=== PATIENT | female | born 1960 | race Caucasian/White ===

== ENCOUNTER → 2019-12-17 12:12 | Day surgery (SDC) | payer SELFPAY ==
[~2019-12-17 12:12] MED LIST: Acetaminophen TAB* 325 MG ONE; Acetaminophen TAB* 325 MG PO ONE; Buffered Lidocaine 1% SYRIN* 1 ML/SYRINGE INTRADERM ONE; HYDROmorphone INJ1* 1 MG/ML SYRINGE IV PRN; HYDROmorphone TAB* 2 MG PO ONE; Lactated Ringers 1000 ML Bag* 1,000 ML IV SCH; Naloxone* 0.4 MG/ML 1 ML VIAL IV PRN; PROCHLORPERAZINE INJ 5 MG/ML 2 ML VIAL IV PRN; ceFAZolin 2 GM PREMIX in ORs 2 GM/50 ML BAG ONE; diPHENhydraMINE IV* 50 MG/ML 1 ml VIAL (BENADRYL) IV PRN
[2019-12-17 13:32] VITALS: BP 167/93
== END | disposition home or self-care (01) ==
LOC: OR 12:12
PROVIDERS: ATTEND Orthopaedic Surgery Hand Surgery
DX: Z53.8 Procedure and treatment not carried out for other reasons (principal)
CPT/HCPCS: A9270-GY; J0690

== ENCOUNTER 2019-12-20 06:20 | Day surgery (SDC) | payer OTHER ==
[~2019-12-20 06:20] MED LIST changes: -Acetaminophen TAB* 325 MG ONE; -Acetaminophen TAB* 325 MG PO ONE; +Famotidine IV* 10 MG/ML 2 ML (20 mg) IV ONE; -HYDROmorphone INJ1* 1 MG/ML SYRINGE IV PRN; -HYDROmorphone TAB* 2 MG PO ONE; -Naloxone* 0.4 MG/ML 1 ML VIAL IV PRN; -PROCHLORPERAZINE INJ 5 MG/ML 2 ML VIAL IV PRN; -ceFAZolin 2 GM PREMIX in ORs 2 GM/50 ML BAG ONE; -diPHENhydraMINE IV* 50 MG/ML 1 ml VIAL (BENADRYL) IV PRN
[2019-12-20] MEDS ORDERED: Famotidine IV* 10 MG/ML 2 ML (20 mg) ONE (06:27)
[2019-12-20] MEDS ORDERED: ceFAZolin 2 GM PREMIX in ORs 2 GM/50 ML BAG ONE (06:27)
[2019-12-20] MEDS ORDERED: Bupivacaine 0.25% SDV* 30 ML ONE (07:23)
[2019-12-20] MEDS ORDERED: Midazolam* 1 MG/ML 5 ML VIAL (5 MG) ONE (07:32)
[2019-12-20] MEDS ORDERED: fentaNYL* 50 MCG/ML 2 ML VIAL (100 MCG VIAL) ONE ×2 (07:42→08:21)
[2019-12-20] MEDS ORDERED: Dexamethasone IV* 4 MG/ML 1 ML (4 MG) ONE (08:06)
[2019-12-20] MEDS ORDERED: Glycopyrrolate IV* 0.2 MG/ML 1 ML VIAL ONE (08:06)
[2019-12-20] MEDS ORDERED: Propofol* 10 MG/ML 20 ML BTL ONE (08:06)
[2019-12-20] MEDS ORDERED: Lidocaine 2% PF * 5 ML VIAL ONE (08:06)
[2019-12-20] MEDS ORDERED: DiMENhydriNATE IV* 50 MG/ML VIAL ONE (08:06)
[2019-12-20] MEDS ORDERED: Ondansetron INJ* 2 MG/ML VIAL ONE (08:06)
[2019-12-20] MEDS ORDERED: Naloxone* 0.4 MG/ML 1 ML VIAL IV PRN (08:41)
[2019-12-20] MEDS ORDERED: DiMENhydriNATE IV* 50 MG/ML VIAL IV PUSH PRN (08:41)
[2019-12-20] MEDS ORDERED: Acetaminophen TAB* 325 MG PO PRN (08:41)
[2019-12-20] MEDS ORDERED: HYDROmorphone INJ1* 1 MG/ML SYRINGE IV PRN (08:41)
[2019-12-20] MEDS ORDERED: Ketorolac INJ* 30 MG/ML 1 ML VIAL IV PUSH ONE (09:29)
[2019-12-20] MEDS ORDERED: Ketorolac INJ* 15 MG/ML 1 ML VIAL IV PUSH ONE (09:29)
[2019-12-20] MEDS ORDERED: Ketorolac INJ* 30 MG/ML 1 ML VIAL ONE (09:50)
[2019-12-20 10:10] VITALS: BP 145/77
--- NOTE | 2019-12-20 15:12 | OP ---
DATE OF OPERATION: 12/20/19 - [facility] DATE OF : 64 SURGEON: Gibran Carter MD DELPHI PROGRAMMER: GEOVANNI Cowart ANESTHESIOLOGIST: Dr. Mckeon. ANESTHESIA: General. PRE-OP DIAGNOSES: 1. 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 2. Left extensor pollicis longus tendon rupture. POST-OP DIAGNOSES: 1. 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 2. Left extensor pollicis longus tendon rupture. OPERATIVE PROCEDURE: 1. Removal of distal radius plate and screws. 2. Transfer of the left extensor indicis proprius tendon to left extensor pollicis longus tendon over the dorsum of hand. ESTIMATED BLOOD LOSS: 5 mL. COMPLICATIONS: None. FINDINGS: See above and below. DESCRIPTION OF PROCEDURE: Ms. Taveras was seen in the preoperative holding area. The correct side, site, and procedures were identified. We came back to the operating room. The arm was prepped and draped in the usual fashion and time-out was performed. The arm was exsanguinated and the tourniquet inflated. I reopened her prior longitudinal incision. Dissection was carried down through the subcutaneous tissue. The interval between the FCR tendon and the radial artery was utilized. FPL muscle was a bit scarred in and was definitely getting worn on the undersurface where it was coming over the plate. I freed that up. I released the scarred pronator quadratus. The soft tissue was freed up over the plate. The screws were all removed. The plate was removed uneventfully. Any rough bony edges were trimmed back. The remnant of pronator was repaired with 3 -0 Vicryl suture. The wound was irrigated out. Subcutaneous tissue was reapproximated with 3-0 Vicryl suture and the skin was closed with 4-0 Monocryl. I then rotated the arm. I made a longitudinal incision over the dorsum of the EPL tendon over the first metacarpal near the CMC joint. EPL tendon stump was located there and released proximally where it scarred in. I then made a 1 cm incision over the dorsum of the second MCP joint, and just proximal to the extensor johansen, I released the EIP tendon distally. I came proximally and made another incision just at intake point proximal to Annie's tubercle. There was nothing in the third dorsal compartment. I located the muscular belly and pulled the EIP tendon proximal to the extensor retinaculum and freed it up proximally so that I could then transpose it dorsal to the extensor retinaculum subcutaneously down into my thumb base wound. Once I had used the tendon passer to pull the tendon up into that thumb base wound, I made a 4 weave Pulvertaft weave. I set tension and secured the weave with one 4-0 Ethibond suture. I then checked my tension, it was just a little loose than I wanted it to be, so I released that and I tightened it up just a little bit more and then secured with two 4-0 [id number] Ethibond sutures. I then had excellent thumb extension with the wrist flexed and nice gentle thumb flexion with the wrist extended. I then secured the remainder of my tendon weave with multiple 4 -0 Ethibond sutures. Once I had it nicely sewn together, I trimmed the ends of the tendon proximally and distally. The wound was irrigated out. All the wounds were closed. I had released just the most proximal aspect of the extensor retinaculum and so I repaired that with a 3-0 PDS suture. The skin was then now closed with 4-0 nylon suture. 0.25% Marcaine was infiltrated all about the operative area. Nice thumb spica splint was applied and she was taken to the recovery room in stable condition. [id number]/[facility] #: [id number] SONALI
== END 2019-12-20 10:34 | disposition home or self-care (01) ==
LOC: OREAST 06:20
PROVIDERS: ATTEND Orthopaedic Surgery Hand Surgery
DX: T84.123A Displacement of internal fixation device of bone of left forearm, initial encounter (principal); S52.592P Other fractures of lower end of left radius, subsequent encounter for closed fracture with malunion; S66.202A Unspecified injury of extensor muscle, fascia and tendon of left thumb at wrist and hand level, initial encounter; I10 Essential (primary) hypertension; M19.90 Unspecified osteoarthritis, unspecified site; X58.XXXA Exposure to other specified factors, initial encounter; Y92.9 Unspecified place or not applicable; Y83.1 Surgical operation with implant of artificial internal device as the cause of abnormal reaction of the patient, or of later complication, without mention of misadventure at the time of the procedure
CPT/HCPCS: 76000; 88300; J0690; J1100; J1240; J1885; J2250; J2405; J2704; J3010; J3490